=== PATIENT | male | born 1995 | race American Indian/Alaskan Native ===

== ENCOUNTER 2020-12-09 11:47 | Emergency (ER) | payer OTHER ==
[2020-12-09 12:09] VITALS: BP 117/67
[2020-12-09] MEDS ORDERED: KETOROLAC 10 MG TAB PO ONE (12:12)
--- NOTE | 2020-12-09 12:18 | Emergency Department Report ---
ED General Adult HPI - General Chief complaint: Abdominal Pain Stated complaint: ABD PAIN Time Seen by Provider: 12/09/20 12:05 Source: patient Mode of arrival: Ambulatory Limitations: No Limitations - History of Present Illness Initial comments: 35-year-old male presents to the ER today complaint of low abdominal pain. Patient states that his symptoms started this morning. He states that has been a constant pain since this morning. Patient states that he was told once by a provider that he may have a inguinal hernia, but when he went to see another doctor he was told he did not have any hernias. Patient states that he has had pain intermittently in his testicle and sometimes feels swollen but not since his pain in the lower abdomen started today. He denies any associated penile discharge, he denies any associated dysuria, urinary frequency, hematuria, nausea, vomiting or any kind of bowel changes. He denies any abdominal surgeries in the past. MD Complaint: Low abdominal pain -: Sudden (This morning) - Related Data Previous Rx's Medication Instructions Recorded Last Taken Type Ketorolac [Toradol] 10 mg PO Q6H PRN #20 tablet 12/09/20 Unknown Rx Allergies Allergy/AdvReac Type Severity Reaction Status Date / Time No Known Allergies Allergy Unverified 12/09/20 12:06 ED Review of Systems ROS: Stated complaint: ABD PAIN Other details as noted in HPI Comment: All other systems reviewed and negative Gastrointestinal: abdominal pain. denies: nausea, vomiting, diarrhea, constipation, hematemesis, melena Genitourinary: denies: urgency, dysuria, frequency, hematuria, discharge, t esticular pain, testicular mass Skin: denies: rash, lesions Neurological: denies: headache, weakness, paresthesias Psychiatric: denies: anxiety, depression Hematological/Lymphatic: denies: easy bleeding, easy bruising ED Past Medical Hx - Past Medical History Previous Medical History?: Yes Additional medical history: Left inguinal hernai - Surgical History Past Surgical History?: No - Social History Smoking Status: Current Every Day Smoker Substance Use Type: Alcohol, Marijuana - Medications Home Medications: Home Medications Medication Instructions Recorded Confirmed Last Taken Type Ketorolac [Toradol] 10 mg PO Q6H PRN #20 tablet 12/09/20 Unknown Rx ED Physical Exam - General Limitations: No Limitations General appearance: alert, in no apparent distress - Head Head exam: Present: atraumatic, normocephalic, normal inspection - Eye Eye exam: Present: normal appearance, PERRL, EOMI Pupils: Present: normal accommodation - Neck Neck exam: Present: normal inspection - Respiratory Respiratory exam: Absent: respiratory distress - Cardiovascular Cardiovascular Exam: Present: regular rate - GI/Abdominal GI/Abdominal exam: Present: soft, tenderness (Mild tenderness to the left lower quadrant and left upper quadrant without guarding or rebound). Absent: distended, guarding, rebound - exam: Present: testicular tenderness (Bilateral, more so on the left), other (Nurse Advocate was present during exam; no apparent hernias noted). Absent: urethral discharge, scrotal swelling, vertical testicular lie, circumcision External exam: Present: normal external exam - Neurological Exam Neurological exam: Present: alert, oriented X3, CN II-XII intact, normal gait - Psychiatric Psychiatric exam: Present: normal affect, normal mood - Skin Skin exam: Present: intact ED Course Vital Signs 12/09/20 12/09/20 12/09/20 12:09 13:05 13:35 Temperature 98.2 F Pulse Rate 70 Respiratory 16 18 18 Rate Blood Pressure 117/67 [Right] O2 Sat by Pulse 100 Oximetry ED Medical Decision Making - Lab Data Result diagrams: 12/09/20 12:25 12/09/20 12:25 - Radiology Data Radiology results: [place] [address] Ultrasound Report Signed Patient: MAGGY ERNST MR #: [id number] : 1995 Acct:[id number] Age/Sex: 25 / M ADM Date: 12/09/20 Loc: ED Attending Dr: Ordering Physician: COLUMBA PADRON Date of Service: 12/09/20 Procedure(s): US testicular doppler comp Accession Number(s): [id number] cc: COLUMBA PADRON US testicular doppler comp INDICATION / CLINICAL INFORMATION: Left testicular pain/LLQ pain. COMPARISON: None available. FINDINGS -- RIGHT TESTIS: Size = 4.4 cm. - Appearance: No significant abnormality. - Cyst or Mass: None. - Color Doppler Flow: No significant abnormality. EPIDIDYMIS: No significant abnormality. HYDROCELE: None. VARICOCELE: None demonstrated. FINDINGS -- LEFT TESTIS: Size = 4.3 cm. - Appearance: No significant abnormality. - Cyst or Mass: None. - Color Doppler Flow: No significant abnormality. EPIDIDYMIS: No significant abnormality. HYDROCELE: None. VARICOCELE: None demonstrated. ADDITIONAL FINDINGS: None. IMPRESSION: 1. No evidence of torsion or epididymoorchitis. No significant abnormality identified. Signer Name: Doug Cummings MD Signed: 12/09/2020 1:19 PM Workstation Name: [id number] Transcribed By: CS Dictated By: Doug Cummings MD Electronically Authenticated By: Doug Cummings MD Signed Date/Time: 12/09/201318 DD/ 17 TD/TT: - Medical Decision Making 35-year-old male presents to the ER today complaint of low abdominal pain. Patient states that his symptoms started this morning. He states that has been a constant pain since this morning. Patient states that he was told once by a provider that he may have a inguinal hernia, but when he went to see another doctor he was told he did not have any hernias. Patient states that he has had pain intermittently in his testicle and sometimes feels swollen but not since his pain in the lower abdomen started today. He denies any associated penile discharge, he denies any associated dysuria, urinary frequency, hematuria, nausea, vomiting or any kind of bowel changes. He denies any abdominal surgeries in the past. Patient currently resting comfortably on his phone. He reports improvement of his pain after meds. Repeat abdominal exam shows soft nontender abdomen. Ultrasound of his testicle shows nothing acute. Labs reviewed and nothing significantly concerning at this time. The history, exam, diagnostic testing and current condition do not suggest acute appendicitis, bowel obstruction, acute cholecystitis, bowel perforation, major GI bleed, severe diverticulitis, abdominal aortic aneurysm, mesenteric ischemia, testicular torsion, volvulus, sepsis or other significant pathology to warrant further testing, continued ED treatment, admission or surgical evaluation at this point. The patient's vital signs have been stable. Discussed lab results and ultrasound results with patient. He states that he has an appointment with his primary care doctor this week. Recommend that he keeps the appointment and if his symptoms continues he can have his primary care doctor refer him to urologist but he understands that if his pain becomes significantly worse he needs to return immediately to the ER. Patient expressed understanding of instructions and agree with plan. The patient's condition is stable and appropriate for discharge from the emergency department. The patient will pursue further outpatient evaluation with the primary care physician or other designated or consulting physician as indicated in the discharge instructions. Critical care attestation.: If time is entered above; I have spent that time in minutes in the direct care of this critically ill patient, excluding procedure time. ED Disposition Clinical Impression: Lower abdominal pain, Testicular pain, unspecified Disposition: TO HOME OR SELFCARE Is pt being admited?: No Does the pt Need Aspirin: No Condition: Stable Instructions: Abdominal Pain, Adult, [id number], Testicular Self-Exam, [id number] Additional Instructions: Recommended to keep your appointment with your primary care doctor this . You can discuss with her about referring you to a urologist especially if your symptoms persist. If your symptoms worsens as discussed return immediately to the ER. Take the medication prescribed. Prescriptions: Ketorolac [Toradol] 10 mg PO Q6H PRN #20 tablet PRN Reason: Pain Referrals: PRIMARY CAREMD [Referring] - 3-5 Days ANDREAS KARIMI MD [Staff Physician] - 3-5 Days Forms: Work/School Release Form(ED) Time of Disposition: 13:50
[2020-12-09 12:39] LABS: Basophils % (Auto) 0.5 % (0.0-1.8); Eosinophils % (Auto) 0.2 % (0.0-4.3); Hematocrit 45.6 % (35.5-45.6); Hemoglobin 14.3 gm/dl (11.8-15.2); Lymphocytes # (Auto) 0.9 K/mm3 (1.2-5.4); Lymphocytes % (Auto) 30.9 % (13.4-35.0); Mean Corpuscular HGB Conc 31 % (32-34); Mean Corpuscular Volume 79 fl (84-94); Monocytes # (Auto) 0.4 K/mm3 (0.0-0.8); Monocytes % (Auto) 12.9 % (0.0-7.3); Platelet Count 182 K/mm3 (140-440); Red Blood Count 5.78 M/mm3 (3.65-5.03); Red Cell Distribution Width 14.7 % (13.2-15.2)
[2020-12-09 12:56] LABS: Albumin 4.5 g/dL (3.9-5); BUN/Creatinine Ratio 13; Blood Urea Nitrogen 12 mg/dL (9-20); Calcium 8.7 mg/dL (8.4-10.2); Hemolysis Index 6
[2020-12-09 12:57] LABS: Alanine Aminotransferase < 5 units/L (7-56)
[2020-12-09 13:03] LABS: Bilirubin,Urine NEG (Negative); Blood,Urine NEG (Negative); Color,Urine Yellow (Yellow); Protein,Urine <15 mg/dL mg/dL (Negative); Urobilinogen,Urine < 2.0 mg/dL (<2.0); WBC,Urine < 1.0 /HPF (0.0-6.0)
--- NOTE | 2020-12-09 13:23 | Ultrasound Report ---
US testicular doppler comp INDICATION / CLINICAL INFORMATION: Left testicular pain/LLQ pain. COMPARISON: None available. FINDINGS -- RIGHT TESTIS: Size = 4.4 cm. - Appearance: No significant abnormality. - Cyst or Mass: None. - Color Doppler Flow: No significant abnormality. EPIDIDYMIS: No significant abnormality. HYDROCELE: None. VARICOCELE: None demonstrated. FINDINGS -- LEFT TESTIS: Size = 4.3 cm. - Appearance: No significant abnormality. - Cyst or Mass: None. - Color Doppler Flow: No significant abnormality. EPIDIDYMIS: No significant abnormality. HYDROCELE: None. VARICOCELE: None demonstrated. ADDITIONAL FINDINGS: None. IMPRESSION: 1. No evidence of torsion or epididymoorchitis. No significant abnormality identified. Signer Name: Doug Cummings MD Signed: 12/09/2020 1:19 PM Workstation Name: [id number]
== END 2020-12-09 14:28 | disposition home or self-care (01) ==
LOC: ED 11:47
DX: N50.812 Left testicular pain (principal); N50.811 Right testicular pain; F17.200 Nicotine dependence, unspecified, uncomplicated; F12.10 Cannabis abuse, uncomplicated; Z79.899 Other long term (current) drug therapy
CPT/HCPCS: 36415; 80053; 81001; 85025; 93975

== ENCOUNTER 2021-02-19 16:35 | Emergency (ER) | payer OTHER | END 2021-02-19 16:40 | disposition left against medical advice (07) | LOC: ED 16:35 ==